=== PATIENT | female | born 1965 | race Caucasian/White ===

== ENCOUNTER 2017-07-22 17:07 | Inpatient (IN) ==
[2017-07-22] MEDS ORDERED: ASPIRIN 325 MG TABLET PO STA (18:30)
[2017-07-22] MEDS ORDERED: KETOROLAC 30 MG/1 ML VIAL IV STA (18:30)
[2017-07-22] MEDS ORDERED: SODIUM CHLORIDE 0.9% 500 ML IV STA (18:30)
[2017-07-22] MEDS ORDERED: ONDANSETRON 4 MG/2 ML VIAL IV STA (18:30)
[2017-07-22 18:43] LABS: Basophils # 0.1 10*3/uL (0.0-0.2); Basophils % 0.8 % (0.0-0.8); Eosinophils # 0.1 10*3/uL (0.0-0.87); Eosinophils % 1.7 % (0.00-10.9); Hematocrit 36.7 VOL% (35.7-47.0); Hemoglobin 12.3 GM/DL (12.0-16.0); Immature Granulocytes % 0.3 %; Immature Granulocytes Absolute 0.02 #; Lymphocytes % 30.5 % (21.3-54.2); Mean Corpuscular HGB Conc 33.5 GM/DL (32-36); Mean Corpuscular Hemoglobin 31 PG (27-34); Mean Corpuscular Volume 93.1 FL (87-102); Mean Platelet Volume 12.4 FL (9.6-12.0); Monocytes # 0.6 10*3/uL (0.11-0.8); Monocytes % 8.8 % (1.7-12.7); Neutrophils # 3.7 10*3/uL (1.4-7.4); Neutrophils % 57.9 % (38.7-73.9); Platelet Count 198 T/CUMM (130-400); Red Blood Count 3.94 MC/CUMM (3.8-5.5); Red Cell Distribution Width 12.2 % (9.3-17.3); White Blood Count 6.5 T/CUMM (4-12)
[2017-07-22 18:52] LABS: INR 0.9
[2017-07-22 19:17] LABS: Albumin 3.6 G/DL (3.4-5.0); Bilirubin,Total 0.5 MG/DL (0.2-1.0); Calcium 8.6 MG/DL (8.5-10.1); Osmolality,Calculated 273.7 MOS/KG (273-304); Potassium 3.4 MMOL/L (3.5-5.1); Total Protein 7.6 G/DL (6.4-8.3)
[2017-07-22] MEDS ORDERED: ENOXAPARIN 100 MG/ML SYRINGE SUBCUT STA (20:15)
[2017-07-22] MEDS ORDERED: ENOXAPARIN 80 MG/0.8 ML SYRINGE SUBCUT ONE (21:34)
[2017-07-22] MEDS ORDERED: MAGNESIUM SULF RIDER 2 GM in PREMIX 1 EACH IV PRN (22:28)
[2017-07-22] MEDS ORDERED: MEPERIDINE 25 MG/1 ML VIAL IV PRN (22:28)
[2017-07-22] MEDS ORDERED: ONDANSETRON 4 MG/2 ML VIAL IV PRN (22:28)
[2017-07-22] MEDS ORDERED: MAGNESIUM SULF RIDER 4 GM in PREMIX 1 EACH IV PRN (22:28)
[2017-07-22] MEDS: METOCLOPRAMIDE 5 MG TABLET PO SCH (22:39)
[2017-07-22] MEDS: GABAPENTIN 300 MG CAPSULE PO SCH (22:39)
[2017-07-22] MEDS: POTASSIUM CHLORIDE 20 MEQ TABLET PO PRN (22:40)
[2017-07-22] MEDS: SODIUM CHLORIDE 0.9% 1,000 ML IV SCH (22:40)
[2017-07-23] MEDS: POTASSIUM CHLORIDE 20 MEQ TABLET PO PRN ×2 (00:34→03:25)
[2017-07-23] MEDS: NITROGLYCERIN 2% OINT 1 INCH/GM PACK TOP SCH ×2 (00:35→06:02)
[2017-07-23 01:12] LABS: Basophils % 0.6 % (0.0-0.8); Eosinophils # 0.2 10*3/uL (0.0-0.87); Eosinophils % 2.6 % (0.00-10.9); Hematocrit 33.8 VOL% (35.7-47.0); Hemoglobin 11.6 GM/DL (12.0-16.0); Immature Granulocytes % 0.3 %; Immature Granulocytes Absolute 0.02 #; Lymphocytes % 46.5 % (21.3-54.2); Mean Corpuscular HGB Conc 34.3 GM/DL (32-36); Mean Corpuscular Hemoglobin 31 PG (27-34); Mean Corpuscular Volume 90.6 FL (87-102); Mean Platelet Volume 11.9 FL (9.6-12.0); Monocytes # 0.5 10*3/uL (0.11-0.8); Monocytes % 8.2 % (1.7-12.7); Neutrophils # 2.7 10*3/uL (1.4-7.4); Neutrophils % 41.8 % (38.7-73.9); Platelet Count 189 T/CUMM (130-400); Red Blood Count 3.73 MC/CUMM (3.8-5.5); Red Cell Distribution Width 12.1 % (9.3-17.3); White Blood Count 6.5 T/CUMM (4-12)
[2017-07-23 01:38] LABS: Albumin 3.3 G/DL (3.4-5.0); Bilirubin,Total 0.6 MG/DL (0.2-1.0); Calcium 8.4 MG/DL (8.5-10.1); Osmolality,Calculated 276.3 MOS/KG (273-304); Potassium 3.8 MMOL/L (3.5-5.1); Risk Ratio 4.11; Thyroid Stimulating Hormone 6.87 uIU/ml (0.358-3.74); Total Protein 6.8 G/DL (6.4-8.3); VLDL CHOLESTEROL 30.4 MG/DL
[2017-07-23] MEDS ORDERED: DIAZEPAM 5 MG TABLET PO ONE (08:16)
[2017-07-23] MEDS ORDERED: diphenhydrAMINE CAP 25 MG CAPSULE PO ONE (08:16)
[2017-07-23] MEDS ORDERED: ASPIRIN EC 81 MG TABLET PO SCH ×2 (09:00)
[2017-07-23] MEDS ORDERED: PANTOPRAZOLE 40 MG TABLET PO SCH (09:00)
[2017-07-23] MEDS ORDERED: ENOXAPARIN 80 MG/0.8 ML SYRINGE SUBCUT SCH (09:00)
[2017-07-23] MEDS ORDERED: NON-FORMULARY MEDICATION (Omeprazole [Prilosec] 40 MG) PO SCH (09:00)
[2017-07-23] MEDS ORDERED: MIDAZOLAM 2 MG/2 ML VIAL ONE (09:01)
[2017-07-23] MEDS ORDERED: NITROGLYCERIN DRIP 50 MG/250 ML BOTTLE IV ONE (09:01)
[2017-07-23] MEDS ORDERED: HEPARIN/NACL 0.9% 2 UNITS/ML 1,000 ML IV ONE (09:01)
[2017-07-23] MEDS ORDERED: VERAPAMIL 5 MG/2 ML VIAL ONE (09:01)
[2017-07-23] MEDS ORDERED: fentaNYL 100 MCG/2 ML VIAL ONE (09:01)
[2017-07-23] MEDS ORDERED: ACETAMINOPHEN 325 MG TABLET PO PRN (09:43)
[2017-07-23] MEDS: METOCLOPRAMIDE 5 MG TABLET PO SCH (10:36)
[2017-07-23] MEDS: GABAPENTIN 300 MG CAPSULE PO SCH ×2 (10:36→15:35)
[2017-07-23] MEDS: SODIUM CHLORIDE 0.9% 1,000 ML IV SCH (15:36)
[2017-07-23 16:24] VITALS: BP 89/58
== END 2017-07-23 18:50 | disposition home or self-care (01) | DRG 287 ==
LOC: N.ED 17:07 → N.EDINP 20:11 → N.TELES 21:09
PROVIDERS: ADMIT Internal Medicine Cardiovascular Disease; ATTEND Internal Medicine Cardiovascular Disease
PROC: CLCCHCL (ICD-10-PCS; 2017-07-23 09:45)